=== PATIENT | male | born 1995 | race Hispanic/Latino ===

== ENCOUNTER 2022-03-04 03:47 | Emergency (ER) | payer OTHER ==
[~2022-03-04] VITALS: Ht 182.9 cm; Wt 92.1 kg
[2022-03-04] MEDS ORDERED: DEXAMETHASONE SOD PHOSPHATE 4 MG/ML 1ML VIAL IM ONE (05:30)
[2022-03-04 05:31] VITALS: BP 124/82
== END 2022-03-04 05:35 | disposition home or self-care (01) ==
LOC: EDH 03:47
DX: K12.2 Cellulitis and abscess of mouth (principal)
CPT/HCPCS: 99285; 96372; J1100